=== PATIENT | male | born 1955 | race Caucasian/White ===

== ENCOUNTER → 2016-10-01 | Day surgery (SDC) | payer BC ==
[2016-09-13 10:26] VITALS: Ht 175.3 cm; Wt 72.7 kg
[~2016-10-01] VITALS: Ht 175.3 cm; Wt 72.7 kg
[~2016-10-01] MED LIST: ATOR10TA82 PO; EPP3/2 IM; LIDOCAINE HCL 2% 2 ML VIAL (20MG/ML) ONE; MELO7.5T5 PO; MULTCAP42 PO; OMEG1CAP84 PO; PHENYLEPHRINE 100MCG/ML 5ML SYR ONE; PROPOFOL IV EMULSION 10 MG/ML 20 ML VIAL IV ONE; SODIUM CHLORIDE 0.9% 500ML 500 ML IV ONE; ZNTT/150 PO
[2016-10-01 14:35] VITALS: TEMP 36.7
--- NOTE | 2016-10-01 15:13 | Endo History and Physical ---
History & Physical Date of Service: Oct 01, 2016. Chief Complaint: ABD PAIN Referring Physician: DR Lawson MCNEIL History of Present Illness 61 yo CM who presents for colonoscopy secondary to abdominal pain and recent diverticulitis. Past Surgical History Hx Cardiac Surgery: No Hx Internal Defibrillator: No Hx Pacemaker: No Hx Abdominal Surgery: No Hx of Implantable Prosthesis: No Hx Post-Op Nausea and Vomiting: No Hx Cancer Surgery: No Hx Thoracic Surgery: No Hx Orthopedic: Yes (LEFT KNEE SURGERY (HARDWARE) AND REMOVAL, RT RCR/BICEP TENDON) Hx Urinary Tract Surgery: No Family History None Social History Smoking Status: Never Smoker Hx Substance Use: No Hx Alcohol Use: No Allergies Coded Allergies: Shrimp (Unverified Allergy, Severe, ANAPHYLAXIS, 09/13/16) PT came in today thinking that shrimp was the cause of his allergic reaction NO KNOWN DRUG ALLERGIES (Verified Allergy, Unknown, ., 09/13/16) Current Medications Reported Home Medications Medications Dose Route/Sig Max Daily Dose Days Date Category Epipen (Epinephrine) 0.3 Mg/0.3 Ml Inj 0.3 Mg IM UD 09/13/16 Reported Lipitor (Atorvastatin Calcium) 10 Mg Tab 10 Mg PO HS 09/13/16 Reported Zantac (Ranitidine HCl) 150 Mg Tab 150 Mg PO QAM 04/15/16 Reported Mobic (Meloxicam) 7.5 Mg Tab 7.5 Mg PO QAM 04/15/16 Reported Multivitamins (Multiple Vitamin) 1 Cap Cap 1 Cap PO QAM 02/04/13 Reported Fish Oil ([place]-3 Fatty Acids) 1 Cap Cap 1 Cap PO QAM 02/04/13 Reported Vital Signs Weight (Kilograms): 72.73 Height (Feet): 5 Height (Inches): 9 Date Time Temp Pulse Resp B/P (MAP) Pulse Ox O2 Delivery O2 Flow Rate FiO2 10/01/16 14:35 36.7 64 20 112/68 (83) 96 Room Air Physical Exam General Appearance: WD/WN, no apparent distress Respiratory/Chest: Auscultation: breath sounds normal Cardiovascular: Heart Auscultation: RRR Abdomen: Bowel Sounds: normal Inspection & Palpation: soft, non-distended, no tenderness, guarding & rebound Assessment and Plan Assessment: 61 yo CM who presents for colonoscopy secondary to abdominal pain and recent diverticulitis. Plan: Proceed with colonoscopy.
--- NOTE | 2016-10-01 15:46 | Discharge Instructions ---
Endoscopy Patient Instructions Date / Procedure(s) Performed Oct 01, 2016. Colonoscopy Allergy Information Coded Allergies: Shrimp (Unverified Allergy, Severe, ANAPHYLAXIS, 09/13/16) PT came in today thinking that shrimp was the cause of his allergic reaction NO KNOWN DRUG ALLERGIES (Verified Allergy, Unknown, ., 09/13/16) Discharge Date / Findings Oct 01, 2016. Diverticulosis Internal hemorrhoids Medication Instructions OK to resume all medications today as prescribed. Medications Dose Route/Sig Max Daily Dose Days Date Category Epipen (Epinephrine) 0.3 Mg/0.3 Ml Inj 0.3 Mg IM UD 09/13/16 Reported Lipitor (Atorvastatin Calcium) 10 Mg Tab 10 Mg PO HS 09/13/16 Reported Zantac (Ranitidine HCl) 150 Mg Tab 150 Mg PO QAM 04/15/16 Reported Mobic (Meloxicam) 7.5 Mg Tab 7.5 Mg PO QAM 04/15/16 Reported Multivitamins (Multiple Vitamin) 1 Cap Cap 1 Cap PO QAM 02/04/13 Reported Fish Oil ([place]-3 Fatty Acids) 1 Cap Cap 1 Cap PO QAM 02/04/13 Reported Provider Instructions Activity Restrictions - No exercising or heavy lifting for 24 hours. - Do not drink alcohol the day of the procedure. - Do not drive a car or operate machinery until the day after the procedure. - Do not make any important decisions or sign important papers in 24 hours after the procedure. Following Day: - Return to full activity which may include returning to work/school. Diet Start your diet with liquids and light foods (jello, soup, juice, toast). Then eat your usual diet if not nauseated. Treatment For Common After Affects For mild abdominal pain, bloating, or excessive gas: - Rest - Eat lightly - Lie on right side Follow-Up Information Follow-up with DR Lawson MCNEIL as scheduled Anesthesia Information What You Should Know You have had a procedure that required some medicine to reduce anxiety and discomfort. This treatment is called moderate sedation. After receiving the treatment, you may be sleepy, but you will be able to breathe on your own. The effects of the treatment may last for several hours. Follow these instructions along with Activity/Diet recommendations noted above: * Do NOT do anything where dizziness or clumsiness would be dangerous. * Rest quietly at home today, then you can be up and about tomorrow. * Have a responsible person stay with you the rest of today. * You may have had an I.V. today. If so, you may take the dressing off later today. Recommendations Call your doctor if: * Trouble breathing * Continuous vomiting for more than 24 hours * Temperature above 101 degrees * Severe abdominal pain or bloating * Pain not relieved by pain medicine ordered * There is increased drainage or redness from any incision * A large amount of rectal bleeding greater than 2-3 tablespoons. (If you had a polyp/s removed or have hemorrhoids, a small amount of blood - from the rectum is to be expected.) * You have any unanswered questions or concerns. IN THE EVENT OF A SERIOUS EMERGENCY, GO TO THE NEAREST EMERGENCY ROOM Your discharge instructions were prepared by provider Raman Lynne. Patient Instructions Signature Page Saúl Shaw Patient (or Guardian) Signature/Date: I have read and understand the instructions given to me by my caregivers. Caregiver/RN/Doctor Signature/Date: The above-named patient and/or guardian has received patient instructions on this date. + Original Patient Signature Page (only) stays with chart. Please make copy for patient.
--- NOTE | 2016-10-01 15:51 | GI REPORT ---
Procedure Date: 10/01/2016 2:56 PM Procedure: Colonoscopy Indications: Abdominal pain in the left lower quadrant, Follow-up of diverticulitis Medicines: Monitored Anesthesia Care Complications: No immediate complications. Estimated Blood Loss: Estimated blood loss: none. Procedure: Pre-Anesthesia Assessment: - Prior to the procedure, a History and Physical was performed, and patient medications and allergies were reviewed. The patient's tolerance of previous anesthesia was also reviewed. The risks and benefits of the procedure and the sedation options and risks were discussed with the patient. All questions were answered, and informed consent was obtained. Prior Anticoagulants: The patient has taken no previous anticoagulant or antiplatelet agents. ASA Grade Assessment: II - A patient with mild systemic disease. After reviewing the risks and benefits, the patient was deemed in satisfactory condition to undergo the procedure. After I obtained informed consent, the scope was passed under direct vision. Throughout the procedure, the patient's blood pressure, pulse, and oxygen saturations were monitored continuously. The scope was introduced through the anus and advanced to the terminal ileum. The colonoscopy was performed without difficulty. The patient tolerated the procedure well. The quality of the bowel preparation was good. The terminal ileum, ileocecal valve, appendiceal orifice, and rectum were photographed. Findings: Multiple small-mouthed diverticula were found in the sigmoid colon. Non-bleeding internal hemorrhoids were found during retroflexion. The hemorrhoids were small. Impression: - Diverticulosis in the sigmoid colon. - Non-bleeding internal hemorrhoids. - No specimens collected. Recommendation: - Resume previous diet. - Continue present medications. - Repeat colonoscopy in 10 years for surveillance. - Return to primary care physician as previously scheduled. Raman Lynne, 10/01/2016 3:50:59 PM This report has been signed electronically. Note Initiated On: 10/01/2016 2:56 PM I attest to the content of the Intraoperative Record and orders documented therein, exceptions below
--- NOTE | 2016-10-01 16:11 | Anesthesiology Progress Note ---
Anesthesia Post Op Note Date & Time Oct 01, 2016 at 16:11 Vital Signs Pain Intensity: 0 Vital Signs Past 12 Hours Date Time Temp Pulse Resp B/P (MAP) Pulse Ox O2 Delivery O2 Flow Rate FiO2 10/01/16 16:03 69 16 86/50 (62) 96 Room Air 10/01/16 16:00 65 16 84/52 (63) 96 Room Air 10/01/16 15:42 69 16 95/52 (66) 97 Room Air 10/01/16 14:35 36.7 64 20 112/68 (83) 96 Room Air Notes Mental Status: alert / awake / arousable, participated in evaluation Pt Amnestic to Procedure: Yes Nausea / Vomiting: adequately controlled Pain: adequately controlled Airway Patency, RR, SpO2: stable & adequate BP & HR: stable & adequate Hydration State: stable & adequate Anesthetic Complications: no major complications apparent
[2016-10-01 16:19] VITALS: PULSE 70
[2016-10-01 16:29] VITALS: BP 111/66; O2SAT 98
== END | disposition home or self-care (01) ==
LOC: C.GI 13:52
PROVIDERS: ATTEND Internal Medicine
DX: R10.32 Left lower quadrant pain (principal); Z09 Encounter for follow-up examination after completed treatment for conditions other than malignant neoplasm; K57.30 Diverticulosis of large intestine without perforation or abscess without bleeding; K64.8 Other hemorrhoids; Z91.013 Allergy to seafood; Z68.24 Body mass index [BMI] 24.0-24.9, adult; F17.220 Nicotine dependence, chewing tobacco, uncomplicated; Z98.890 Other specified postprocedural states

== ENCOUNTER → 2017-01-21 | Outpatient (CLI) | payer BC ==
[~2017-01-21] MED LIST changes: -ATOR10TA82 PO; +ATOR10TA88 PO; -LIDOCAINE HCL 2% 2 ML VIAL (20MG/ML) ONE; -PHENYLEPHRINE 100MCG/ML 5ML SYR ONE; -PROPOFOL IV EMULSION 10 MG/ML 20 ML VIAL IV ONE; -SODIUM CHLORIDE 0.9% 500ML 500 ML IV ONE
[2017-01-21 09:57] LABS: ALT/SGPT 36 U/L (12-78); BLOOD UREA NITROGEN 14 mg/dl (7-18); BUN/CREATININE RATIO 15.1 (10-20); CARBON DIOXIDE 28 mmol/L (21-32); CHLORIDE 107 mmol/L (98-107); CHOLESTEROL 115 mg/dl (0-200); CREATININE 0.95 mg/dl (0.60-1.40); GLUCOSE 104 mg/dl (70-99); SODIUM 142 mmol/L (136-145); TRIGLYCERIDES 54 mg/dl (0-150); VERY LOW DENSITY LIPOPROT CALC 11 mg/dl
[2017-01-21 10:02] LABS: ALB/GLOB RATIO 1.3 (0.9-2); ALKALINE PHOSPHATASE 73 U/L (45-117); AST/SGOT 21 U/L (15-37); CHOLESTEROL/HDL RATIO 2.3; HDL CHOLESTEROL 49 mg/dl; LDL CHOLESTEROL CALCULATED 55 mg/dl
== END | disposition home or self-care (01) ==
LOC: C.LAB1850 07:11
PROVIDERS: ATTEND Physician Assistant Medical
DX: E78.5 Hyperlipidemia, unspecified (principal); R73.03 Prediabetes; Z12.5 Encounter for screening for malignant neoplasm of prostate

== ENCOUNTER → 2017-03-28 | Outpatient (CLI) | payer BC ==
[~2017-03-28] MED LIST changes: +ATOR10TA82 PO; -ATOR10TA88 PO
[2017-03-28 10:29] LABS: % FREE PSA 17.9 %; FREE PSA 0.73 ng/ml; PROSTATE SPECIFIC ANTIGEN 4.1 ng/ml (0.000-4.000)
== END | disposition home or self-care (01) ==
LOC: C.LABSPEC 07:01
PROVIDERS: ATTEND Urology
DX: R97.20 Elevated prostate specific antigen [PSA] (principal)

== ENCOUNTER → 2017-07-24 | Outpatient (CLI) | payer OTHER ==
[~2017-07-24] MED LIST changes: +RANI150T85 PO; -ZNTT/150 PO
[2017-07-24 09:37] LABS: HEMATOCRIT 43.4 % (42-52); HEMOGLOBIN 14.8 g/dL (14.0-18.0); MEAN CORPUSCULAR HEMOGLOBIN 32.4 pg (25-34); MEAN CORPUSCULAR HGB CONC 34.1 g/dl (32-36); MEAN PLATELET VOLUME 9.7 fL (7.4-10.4); PLATELET COUNT 274 K/uL (130-400); RED CELL DISTRIBUTION WIDTH CV 12.7 % (11.5-14.5); RED CELL DISTRIBUTION WIDTH SD 43.8 fL (36.4-46.3); WHITE BLOOD COUNT 5.37 K/uL (4.8-10.8)
[2017-07-24 09:55] LABS: HEMOGLOBIN A1C 5.9 % (4.5-5.6)
[2017-07-24 09:56] LABS: BASO % 0.7 %; BASO ABS # 0.04 K/uL (0-0.2); EOS % 4.1 %; EOS ABS # 0.22 K/uL (0-0.5); IG# 0.01 K/uL (0.00-0.02); LYMPH % 51.8 %; LYMPH ABS # 2.78 K/uL (1.2-3.4); MONO % 10.4 %; MONO ABS # 0.56 K/uL (0.11-0.59); NEUT % 32.8 %; NEUT ABS # 1.76 K/uL (1.4-6.5)
== END | disposition home or self-care (01) ==
LOC: C.LABSPEC 07:00
PROVIDERS: ATTEND Internal Medicine
DX: E78.5 Hyperlipidemia, unspecified (principal); R73.03 Prediabetes

== ENCOUNTER 2022-05-23 05:30 | Inpatient (IN) ==
--- NOTE | 2022-05-17 12:53 | Anesthesiology Consultation ---
Date of Service May 17, 2022 Assessment & Plan (1) Encounter for pre-operative examination: - check BSG am DOS. - COVID screening: Per chief passenger ship steward/stewardess on 05/17/2022: Travel screen negative, no known COVID-19 positive contacts or current COVID-19 related symptoms in past 2 weeks. To surgeon's discretion if preop COVID testing is needed. Chart Review Chart Review: Acceptable Risk for Surgery and Patient NOT seen in Pre Admission Testing History Surgery Operation Date: 05/23/22 07:30 Proposed Procedures p Laparoscopic Sigmoidectomy, Possible Open, Possible Ostomy - Zi Cerna DO Height/Weight Height: 5 ft 9 in Weight: 72.575 kg Allergies Allergy/AdvReac Type Severity Reaction Status Date / Time shellfish derived Allergy Severe Anaphylaxis Verified 05/10/22 09:15 shrimp Allergy Severe ANAPHYLAXIS Verified 05/10/22 09:15 Medications Home Medications Medication Instructions Recorded Confirmed Last Taken multivitamin 1 tab PO QAM 04/12/19 05/17/22 04/14/21 epinephrine 0.3 mg/0.3 mL 0.3 mg (0.3 mL) IM DAILY PRN 04/28/19 05/17/22 Unknown injection, auto-injector (EpiPen) anaphylaxis #1 ea diclofenac sodium 1 % topical gel 4 g topical QID PRN left knee pain 06/27/20 05/17/22 08/09/20 omega-3 fatty acids 1,250 mg 1,250 mg PO QAM 04/14/21 05/17/22 04/14/21 capsule pantoprazole 40 mg tablet,delayed 40 mg PO QAM #90 tabs 07/10/21 05/17/22 Unknown release calcium carbonate 600 mg-vitamin 1 tab PO BID 07/24/21 05/17/22 Unknown D3 10 mcg (400 unit) tablet (Calcium with Vitamin D) cholecalciferol (vitamin D3) 25 25 mcg PO QAM 07/24/21 05/17/22 Unknown mcg (1,000 unit) capsule psyllium husk 3.4 gram/5.4 gram 1 tbsp PO DAILY 07/24/21 05/17/22 Unknown oral powder (Metamucil) metformin 500 mg tablet,extended 500 mg PO DAILY #30 tabs 11/21/21 05/17/22 Unknown release 24hr atorvastatin 10 mg tablet 10 mg PO HS #90 tabs 01/05/22 05/17/22 Unknown leuprolide (3 month) 22.5 mg (3 22.5 mg subcut ONCE Prostate 02/13/22 05/17/22 Unknown month) subcutaneous syringe cancer #1 ea tamsulosin 0.4 mg capsule 0.4 mg PO BIDWMEAL #60 caps 02/14/22 05/17/22 Unknown amoxicillin 875 mg-potassium 1 tab PO BID #28 tabs 05/11/22 05/17/22 Unknown clavulanate 125 mg tablet Past Medical History Medical History (Updated 05/17/22 @ 12:49 by Edita Damico PA-C) Anemia BPH with obstruction/lower urinary tract symptoms Depression Diverticulosis History of anaphylaxis Hyperlipidemia Osteopenia Prediabetes not currently taking metformin Prostate cancer (02/02/21) 04/2020-radiation tx Past Family History Family History Father Alcohol abuse Mother Skin cancer Brother Skin cancer, Onset Age: 40 Brother No problems noted. Brother No problems noted. Brother No problems noted. Sister No problems noted. Daughter No problems noted. Daughter No problems noted. Son No problems noted. Other No family history of adverse response to anesthesia Denies family history of Ovarian cancer Prostate cancer Diabetes Coronary heart disease Myocardial infarction Breast cancer Colorectal cancer Past Surgical History Surgical History History of colonoscopy with polypectomy History of open reduction and internal fixation (ORIF) procedure (07/01/13) left tibial plateau fracture 07/01/2013--hardware removed History of prostate biopsy (02/02/21) Dr. Anirudh Bustamante History of repair of right rotator cuff (2015) History of tooth extraction Social History Smoking Status: Never smoker tobacco type: smokeless tobacco Do You Dip or Chew Tobacco: No Hx Alcohol Use: No Alcohol type: beer alcohol intake frequency: holidays/special occasions only Hx Substance Use: No substance use type: does not use Lab Results Anesthesia Preop Results Results Anesthesia Widget: WBC 6.80 K/ul (4.8-10.8) 03/28/22 Hgb 13.2 g/dl (14.0-18.0) L 03/28/22 Hct 37.7 % (40.1-51.0) L 03/28/22 Plt 317 K/uL (130-400) 03/28/22 Na 138 mmol/L (136-145) 03/28/22 K 4.5 mmol/L (3.5-5.1) 03/28/22 Cl 105 mmol/L (98-107) 03/28/22 CO2 29 mmol/L (21-32) 03/28/22 BUN 17 mg/dl (6-23) 03/28/22 Creat 1.04 mg/dl (0.6-1.4) 03/28/22 Glucose Level 101 mg/dl (70-99(Fasting)) H 03/28/22 Urine Color Yellow 03/28/22 Urine Appearance Clear (Clear) 03/28/22 Urine pH 6.0 (4.5-7.5) 03/28/22 Urine Specific [place] 1.015 (1.000-1.030) 03/28/22 Urine Protein Negative (Negative) 03/28/22 Urine Glucose (UA) Negative (Negative) 03/28/22 Urine Ketones Negative (Negative) 03/28/22 Urine Blood Negative (Negative) 03/28/22 Urine Nitrite Negative (Negative) 03/28/22 Urine Bilirubin Negative (Negative) 03/28/22 Urine Urobilinogen Negative (Negative) 03/28/22 Urine Leukocyte Esterase Negative (Negative) 03/28/22 Testing Electrocardiogram Date: 05/15/22 NSR, rate 71 bpm Other Testing Abdomen pelvis CT 03/28/22 Gallbladder and biliary tree: Cholelithiasis is seen without evidence of cholecystitis. No intra- or extrahepatic biliary ductal dilation. Reproductive organs: Metallic densities are seen in the prostate. Bowel: Extensive diverticulosis is seen. Again noted is a prominent diverticulum in the sigmoid colon. There is thickening of the wall and surrounding fat stranding and vascular prominence. The appendix is normal. Lymph nodes Retroperitoneal: Subcentimeter lymph nodes are noted. Mesenteric: Subcentimeter mesenteric lymph nodes are seen most prominently about the sigmoid colon. Vessels: Atherosclerotic calcifications are seen. Abdominal wall: A fat-containing umbilical hernia is seen. Bones: Degenerative changes in the visualized spine. Anterior wedge deformities are again noted in the lumbar spine. IMPRESSION: 1. Findings are suggestive of mild diverticulitis about a large sigmoid diverticulum, similar in appearance to prior exam. No evidence of perforation or abscess formation. 2. Cholelithiasis without cholecystitis. 3. Additional findings as above.
[2022-05-23] MEDS ORDERED: HEPARIN SOD 5,000 UNIT/0.5 ML VIAL SQ SCH (06:00)
[2022-05-23] MEDS ORDERED: LACTATED RINGER'S 1,000 ML IV SCH (06:00)
[2022-05-23] MEDS ORDERED: LR 15ML/HR IV SCH (06:00)
[2022-05-23] MEDS ORDERED: ERTAPENEM SODIUM 1,000 MG in SYRINGE 0 ML IV SCH (06:00)
[2022-05-23] MEDS ORDERED: KETAMINE 50 MG/5 ML SYRINGE ONE (06:29)
[2022-05-23] MEDS ORDERED: fentaNYL citrate 100 MCG/2 ML VIAL ONE (06:29)
[2022-05-23] MEDS ORDERED: DEXAMETHASONE SOD INJ 4 MG/ML VIAL ONE (06:29)
[2022-05-23] MEDS ORDERED: MIDAZOLAM HCL 1 MG/ML 2ML VIAL ONE (06:29)
[2022-05-23] MEDS ORDERED: LIDOCAINE 2% MPF LOCAL 5 ML VIAL INFIL ONE (06:29)
[2022-05-23] MEDS ORDERED: PROPOFOL IV EMULSION 10 MG/ML 20 ML VIAL IV ONE (06:29)
[2022-05-23] MEDS ORDERED: ROCURONIUM BROMIDE 10 MG/ML 5 ML VIAL IV ONE ×3 (06:29→08:16)
--- NOTE | 2022-05-23 06:50 | History & Physical Bridge Note ---
Date of Service May 23, 2022 History & Physical Bridge Note I have examined the patient, reviewed the History & Physical and in the interval since the performance of the History & Physical I have noted the following changes of clinical significance: no changes noted
[2022-05-23] MEDS ORDERED: ATROPINE SULFATE 0.1 MG/ML 10ML SYR IV PRN (06:51)
[2022-05-23] MEDS ORDERED: HYDROmorphone INJ 2 MG/ML SYR/VIAL IV PRN (06:51)
[2022-05-23] MEDS ORDERED: ONDANSETRON INJ 2 MG/ML 2 ML VIAL IV PRN (06:51)
[2022-05-23] MEDS ORDERED: ePHEDrine sulfate 50 MG/ML AMP IV PRN (06:51)
[2022-05-23] MEDS ORDERED: BUPIVACAINE/EPINEPHRINE 0.25% 1:200,000 30 ML VIAL ONE (07:37)
[2022-05-23] MEDS ORDERED: ONDANSETRON INJ 2 MG/ML 2 ML VIAL ONE (08:16)
[2022-05-23] MEDS ORDERED: HYDROmorphone INJ 2 MG/ML SYR/VIAL ONE (08:16)
[2022-05-23] MEDS ORDERED: ePHEDrine sulfate 50 MG/ML SYR ONE (08:16)
[2022-05-23] MEDS ORDERED: METHYLENE BLUE 0.5% 10 ML VIAL ONE (09:54)
--- NOTE | 2022-05-23 10:39 | Post Operative Brief Note ---
PG Immediate Post Op with CF Date of Surgery May 23, 2022 Pre & Post Diagnosis Operation Date: 05/23/22 07:00 Pre-Op Diagnosis: 1. Diverticulitis 2. Umbilical hernia Post-Op Diagnosis: 1. Diverticulitis 2. Umbilical hernia I identified the patient and participated in the time-out.: Yes Procedure Operation Date: 05/23/22 07:00 Actual Procedures p Laparoscopic Sigmoidectomy(Not Applicable) - Zi Cerna DO s Open Umbilical Hernia Repair(Not Applicable) - Zi Cerna DO Surgeon Zi Cerna DO Metal Casting Trades Worker Travis Woody DO-Second Surgeon Estimated Blood Loss 100 Findings See Below Extensive phlegmon in the sigmoid colon attached to the lateral pelvic sidewall 1 cm umbilical hernia Specimens Specimen Description: A. Portion of Sigmoid Drains Mcdaniels Catheter Anesthesia Type General Complications none Disposition Disposition: Recovery Room
--- NOTE | 2022-05-23 10:55 | Operative Report ---
PG Post Operative Report Pre & Post Diagnosis Operation Date: 05/23/22 07:00 Pre-Op Diagnosis: 1. Diverticulitis 2. Umbilical hernia Post-Op Diagnosis: 1. Diverticulitis 2. Umbilical hernia I identified the patient and participated in the time-out.: Yes Procedure Operation Date: 05/23/22 07:00 Actual Procedures p Laparoscopic Sigmoidectomy(Not Applicable) - Zi Cerna DO s Open Umbilical Hernia Repair(Not Applicable) - Zi Cerna DO Surgeon Zi Cerna DO Brand Attendant Travis Woody DO-Second Surgeon Estimated Blood Loss 100 Findings See Below Extensive phlegmon in the sigmoid colon attached to the lateral pelvic sidewall 1 cm umbilical hernia Specimens Sigmoid colon and pathology Drains None Anesthesia Type General Complications none Disposition Disposition: Recovery Room Indications 67-year-old male with recurrent diverticulitis Description of Procedure The patient was brought to the OR and placed in the lithotomy position with both arms tucked. At this time he underwent general endotracheal anesthesia without any problems. He was given appropriate pre-operative antibiotics. Mcdaniels catheter was placed under sterile conditions. His abdomen was prepped and draped in the usual sterile fashion. Timeout was called. The procedure was verified as laparoscopic sigmoidectomy, possible open ,open umbilical hernia repair, possible mesh. Surgical, anesthesia and nursing teams agreed and the procedure was begun. After injection of 0.25% Marcaine with epinephrine, a infraumbilical curvilinear incision was made using a #15 blade scalpel. This was carried down to the fascia using electrocautery. The umbilical stalk was then encircled using a Deepa clamp. The hernia sac was then dissected off of the umbilical skin using blunt and sharp dissection and contents were reduced. The hernia sac was removed. At this time the 12 mm [place] trocar was placed through the hernia defect. No injury was seen to placement of trocar. The abdomen was insufflated and the laparoscope and reduced. At this time 3 further trocars were placed under direct visualization. One 12 mm trocar in the right lower quadrant and two 5 mm trocars in the right upper quadrant and left lower quadrant respectively. This time the patient was placed in Trendelenburg and rotated to the right. Upon inspection of the abdomen there was an extensive phlegmon in the sigmoid colon attached to the lateral pelvic sidewall. This was freed up using a combination of blunt and sharp dissection as well as using harmonic scalpel. More proximally the white line of Toldt was taken down using the harmonic scalpel. The ureter was identified and preserved. Once the sigmoid colon was freed laterally, the distal transection point of the colon was identified and a window was made in the mesentery using a harmonic scalpel. This was down to the level of the sacral promontory and was good healthy tissue. Using Autrement (HotelHotel) MARIANELA 60 mm purple load stapler this was fired across the bowel. At this time the mesentery of the sigmoid colon was then transected using the harmonic scalpel back to an area of healthy descending colon free of pathology. The left lower quadrant incision was then lengthened and the distal end of the specimen was delivered through the wound. Again a healthy appearing portion of the descending colon was then transected between bowel clamps using [place] scissors. Specimen was passed off. At this time a 2-0 silk pursestring suture was fashioned into the proximal end of the colon securing a 25 mm EEA anvil. At this time the colon was then placed back into the abdomen and the left lower quadrant incision was closed at the fascial level using 0 PDS suture in a running fashion. We then reinsufflated the abdomen. The boiler assistant operator then placed the EEA stapler through the rectum without issue. The spike was then opened just posterior to the staple line and to the proximal colon anvil was attached to the spike. The anastomosis was free of tension and appeared healthy. The EEA stapler was then fired and 2 intact donuts were seen upon removal. This time a leak test was performed using the rigid proctoscope and no leak was found. The abdomen was then irrigated until clear. Hemostasis was complete. At this time the trocars were removed and no bleeding was noted. The abdomen was desufflated. The umbilical hernia defect was then cleared of any surrounding devitalized tissue and closed primarily using 0 PDS in a [id number] fashion. The umbilicus was then tacked down to the fascia using 3-0 Vicryl. The right lower quadrant 12 mm trocar was closed the fascial level using an 0 Vicryl suture. Incisions were then closed with 3-0 Vicryl was used to close the deep dermal layer and 4-0 Monocryl was used to close the skin in a running subcuticular fashion. Sterile dressing was applied. All needle and sponge counts were correct x 2. At this point the patient was awakened from anesthesia, extubated and transported to PACU in stable condition. My partner Travis Woody DO was present and scrubbed for the entire case. He was needed due to the complexity of the case. I attest to the content of the Intraoperative Record and any orders documented therein. Any exceptions are noted below.
[2022-05-23] MEDS ORDERED: GLYCOPYRROLATE 0.2 MG/ML VIAL ONE (10:56)
[2022-05-23] MEDS ORDERED: NEOSTIGMINE METHYLSULFATE 1 MG/ML 10ML VIAL ONE (10:56)
[2022-05-23] MEDS: fentaNYL citrate 100 MCG/2 ML VIAL IV PRN ×2 (11:22→11:34)
--- NOTE | 2022-05-23 11:44 | Anesthesiology Progress Note ---
Date of Service May 23, 2022 Anesthesia Post Procedure Vital Signs Vital Signs: Temp Pulse Pulse Resp BP Pulse Ox O2 Del Method 05/23/22 11:35 36.3 C L 77 18 120/70 97 Nasal Cannula 05/23/22 11:05 86 20 114/78 100 Oxymask 05/23/22 11:25 87 13 112/68 93 Nasal Cannula 05/23/22 11:15 85 18 122/72 99 Oxymask 05/23/22 10:55 92 H 16 116/78 98 Oxymask 05/23/22 10:47 36.3 C L 99 H 13 133/75 99 Oxymask 05/23/22 05:58 36.6 C 66 16 112/71 98 Room Air O2 Flow Rate 05/23/22 11:35 3 05/23/22 11:05 5 05/23/22 11:25 3 05/23/22 11:15 5 05/23/22 10:55 5 05/23/22 10:47 5 05/23/22 05:58 Pain Intensity Abdomen: Pain Intensity: 6 Transfer of Care Handoff Completed per policy Notes Mental Status: alert / awake / arousable and participated in evaluation Patient Amnestic to Procedure: Yes Nausea / Vomiting: adequately controlled Pain: adequately controlled Airway Patency, RR, SpO2: stable & adequate BP & HR: stable & adequate Hydration State: stable & adequate Anesthetic Complications: no major complications apparent and Pt Satisfied with anesthetic care
[2022-05-23] MEDS ORDERED: NALOXONE HCL 0.4 MG/1 ML VIAL/CARP IV PRN (12:36)
[2022-05-23] MEDS ORDERED: HYDROmorphone PCA 30 MG/30 ML IV PRN (12:36)
[2022-05-23] MEDS: ACETAMINOPHEN 1,000 MG/100 ML VIAL IV SCH ×2 (13:17→20:25)
[2022-05-23] MEDS: LACTATED RINGER'S 1,000 ML IV SCH ×2 (13:17→21:02)
[2022-05-23] MEDS: SODIUM CHLORIDE 0.9% 1000ML 1,000 ML IV SCH (13:41)
[2022-05-23] MEDS: TAMSULOSIN HCL 0.4 MG CAP PO SCH (20:25)
[2022-05-24] MEDS: ACETAMINOPHEN 1,000 MG/100 ML VIAL IV SCH ×3 (04:38→21:11)
[2022-05-24] MEDS: LACTATED RINGER'S 1,000 ML IV SCH ×3 (05:52→21:39)
--- NOTE | 2022-05-24 08:04 | Surgery Progress Note ---
Date of Service May 24, 2022 Assessment & Plan (1) S/P laparoscopic-assisted sigmoidectomy: Plan: POD#1 sigmoidectomy and umbilical hernia repair pt is doing well post op tolerating clears, pain manageable. no n/v. dressings c/d/i labs this AM are pending plan to d/c blake start ppx lovenox if hbg stable OOB and pulmonary toilet encouraged throughout the day awaiting return of bowel function Admission and Anticipated Discharge Date Admission Date: May 23, 2022 Supervising Physician Co-Signing Physician Notes I personally saw and evaluated the patient with Annika Birmingham PA-C and agree with the assessment and plan. 67-year-old male postoperative day 1 laparoscopic sigmoidectomy, open umbilical hernia repair His were labs reviewed Vital signs are stable Continue clear liquids until some return of bowel function Remove Blake catheter Pain control with DEFENSE ATTORNEY Start Lovenox 40 mg subcutaneously daily for DVT prophylaxis Encourage ambulation incentive spirometry, wean oxygen as able Subjective Patient is doing well. Tolerating clears, no nausea/vomiting. Pain managed with Tylenol and DEFENSE ATTORNEY currently. Had some bladder pains yesterday and realized blake needed repositioned with relief. Was able to sit at the side of the bed and even stand for a little bit yesterday. Physical Exam Physical Exam: awake/alert, no distress Respiratory: normal respiratory effort Gastrointestinal (Abdomen): Inspection/Auscultation: + abdomen distended (mild) and + abdominal surgical incision (surgical dressings in place, c/d/i) Percussion/Palpation: + abdomen tender (expected treva incisional discomfort ) and abdomen soft Results & Data ([facility]) Vital Signs (Past 12 Hours) Vital Signs Temp Pulse Pulse Resp BP BP Pulse Ox 05/24/22 07:41 36.8 C 83 20 101/63 97 05/24/22 06:19 05/24/22 02:48 36.7 C 80 20 138/63 97 05/23/22 22:08 36.6 C 88 20 95/51 L 96 05/23/22 20:30 05/23/22 20:05 36.6 C 87 16 93/53 L 97 O2 Del Method O2 Flow Rate 05/24/22 07:41 Room Air 05/24/22 06:19 Nasal Cannula 1 05/24/22 02:48 Nasal Cannula 05/23/22 22:08 Room Air 05/23/22 20:30 Nasal Cannula 2 05/23/22 20:05 Nasal Cannula 2 PG Care Time/CCT Total # of Minutes Spent Total Time Spent with Patient: Total time spent is greater than 50% in coordination of care (as documented) at patient's floor/unit and/or counseling patient: Coding Level of Care Code None Diagnoses S/P laparoscopic-assisted sigmoidectomy Z90.49
[2022-05-24] MEDS: ENOXAPARIN INJ 40 MG/0.4 ML SYR SQ SCH (08:19)
[2022-05-24] MEDS: TAMSULOSIN HCL 0.4 MG CAP PO SCH ×2 (08:19→21:12)
[2022-05-24 08:42] LABS: Basophils # (auto) 0.01 K/uL (0-0.2); Basophils % (auto) 0.1 %; Hematocrit (blood only) 32.1 % (42.0-52.0); Hemoglobin 10.8 g/dl (14.0-18.0); Immature Granulocytes # (auto) 0.03 K/uL (0.01-0.20); Immature Granulocytes % (auto) 0.4 %; Lymphocytes % (auto) 16.9 %; Mean Corpuscular Hemoglobin 32.2 pg (25.0-34.0); Mean Corpuscular Hgb Conc 33.6 g/dL (32.0-36.0); Mean Corpuscular Volume 95.8 fL (80.0-100.0); Mean Platelet Volume 9.5 fL (9.4-12.4); Monocytes # (auto) 0.66 K/uL (0.11-0.59); Monocytes % (auto) 8.6 %; Neutrophils # (auto) 5.69 K/uL (1.40-6.50); Platelet Count 229 K/uL (130-400); RDW Coefficient of Variation 12.6 % (11.5-14.5); RDW Standard Deviation 43.9 fL (36.4-46.3); Red Blood Count 3.35 M/uL (4.70-6.10); White Blood Count 7.69 K/ul (4.8-10.8)
[2022-05-24 09:24] LABS: Calcium 8.8 mg/dl (8.5-10.1); Potassium 4.1 mmol/L (3.5-5.1)
[2022-05-24 09:29] LABS: Creatinine Clr Calc Pharmacy 69.7 ml/min; Est GFR (African American) 88.6 ml/min; Est GFR (Non-African American) 76.5 ml/min
[2022-05-24] MEDS: SODIUM CHLORIDE 0.9% 1000ML 1,000 ML IV SCH (12:52)
[2022-05-25] MEDS: ONDANSETRON INJ 2 MG/ML 2 ML VIAL IV PRN ×2 (03:52→08:37)
[2022-05-25] MEDS: ACETAMINOPHEN 1,000 MG/100 ML VIAL IV SCH ×3 (04:56→20:04)
[2022-05-25] MEDS: LACTATED RINGER'S 1,000 ML IV SCH ×2 (06:08→17:20)
[2022-05-25 07:34] LABS: Basophils # (auto) 0.02 K/uL (0-0.2); Basophils % (auto) 0.3 %; Eosinophils # (auto) 0.01 K/uL (0-0.50); Eosinophils % (auto) 0.1 %; Hematocrit (blood only) 32.2 % (42.0-52.0); Hemoglobin 10.9 g/dl (14.0-18.0); Immature Granulocytes # (auto) 0.03 K/uL (0.01-0.20); Immature Granulocytes % (auto) 0.4 %; Lymphocytes # (auto) 0.74 K/uL (1.2-3.4); Lymphocytes % (auto) 10.4 %; Mean Corpuscular Hemoglobin 32.1 pg (25.0-34.0); Mean Corpuscular Hgb Conc 33.9 g/dL (32.0-36.0); Mean Corpuscular Volume 94.7 fL (80.0-100.0); Mean Platelet Volume 9.7 fL (9.4-12.4); Monocytes # (auto) 0.64 K/uL (0.11-0.59); Neutrophils # (auto) 5.66 K/uL (1.40-6.50); Neutrophils % (auto) 79.8 %; Platelet Count 232 K/uL (130-400); RDW Coefficient of Variation 12.4 % (11.5-14.5); RDW Standard Deviation 43.4 fL (36.4-46.3)
[2022-05-25] MEDS ORDERED: MoRPHine SULFATE 4 MG/ML 1 ML CARP\\VIAL IV PRN (08:19)
[2022-05-25] MEDS ORDERED: PROMETHAZINE HCL 12.5 MG in SODIUM CHLORIDE 0.9% 50 ML IV PRN (08:19)
[2022-05-25] MEDS ORDERED: MoRPHine SULFATE 2 MG/ML CARP IV PRN (08:19)
--- NOTE | 2022-05-25 08:25 | Surgery Progress Note ---
Date of Service May 25, 2022 Assessment & Plan (1) S/P laparoscopic-assisted sigmoidectomy: Plan: POD#2 sigmoidectomy and umbilical hernia repair Some nausea/headache noted this AM, starting to improve after meds Vitals are stable. WBC 7, Hbg 10.9 Continue clears until further return of bowel function. Decrease IVF Will d/c C[employer] SUPPLY DISTRIBUTOR and transition to PO + IV pain meds prn On lovenox for dvt ppx OOB and pulmonary toilet encouraged Admission and Anticipated Discharge Date Admission Date: May 23, 2022 Supervising Physician Co-Signing Physician Notes I personally saw and evaluated the patient with Annika Birmingham PA-C and agree with the assessment and plan. 67-year-old male postoperative day 2 laparoscopic sigmoidectomy, open umbilical hernia repair His were labs reviewed Vital signs are stable We will DC [employer]ICE SUPPLY DISTRIBUTOR and start p.o. pain medication with IV for breakthrough We will give one-time dose of ibuprofen for headache Decrease IV fluids Order KUB Continue clear liquids until some return of bowel function Continue Lovenox 40 mg subcu for DVT prophylaxis He needs to ambulate 3 times daily Subjective Patient feeling a little lousy this AM, reports a headache and nausea that came on suddenly at 4:30 this AM. He has received pain meds this morning and feeling a bit better thus far. Does not feel like he needs to vomit currently. Reports pain is controlled, not pressing [employer]EN[employer] SERVICE SUPPLY DISTRIBUTOR button much. No gas/BM thus far. Has been voiding well. Physical Exam Physical Exam: awake/alert Respiratory: normal respiratory effort Gastrointestinal (Abdomen): Inspection/Auscultation: + abdomen distended (mild) and + abdominal surgical incision (dressings c/d/i) Percuss ion/Palpation: + abdomen tender (mild incisional discomfort) and abdomen soft Results & Data ([facility]) Vital Signs (Past 12 Hours) Vital Signs Temp Pulse Resp BP BP Pulse Ox O2 Del Method 05/25/22 07:29 36.8 C 76 16 109/64 96 Nasal Cannula 05/25/22 03:55 36.8 C 82 16 124/64 94 Room Air 05/24/22 21:19 37.3 C 89 20 113/67 95 Room Air O2 Flow Rate FiO2 05/25/22 07:29 1 40 05/25/22 03:55 05/24/22 21:19 PG Care Time/CCT Total # of Minutes Spent Total Time Spent with Patient: Total time spent is greater than 50% in coordination of care (as documented) at patient's floor/unit and/or counseling patient: Coding Level of Care Code None Diagnoses S/P laparoscopic-assisted sigmoidectomy Z90.49
[2022-05-25] MEDS: TAMSULOSIN HCL 0.4 MG CAP PO SCH ×2 (08:37→20:04)
[2022-05-25] MEDS: ENOXAPARIN INJ 40 MG/0.4 ML SYR SQ SCH (08:37)
[2022-05-25 08:48] LABS: BUN Creatinine Ratio 12.9 (10-20); Est GFR (African American) 96.7 ml/min; Est GFR (Non-African American) 83.5 ml/min; Potassium 4.1 mmol/L (3.5-5.1)
[2022-05-25] MEDS ORDERED: IBUPROFEN 600 MG TAB PO STA (10:22)
[2022-05-25] MEDS: PANTOprazole 40 MG TAB PO SCH (10:23)
[2022-05-25] MEDS: oxyCODONE HCL IR 5 MG TAB (IMMEDIATE RELEASE) PO PRN (11:40)
--- NOTE | 2022-05-25 12:05 | XRay Report ---
KUB HISTORY: eval nausea s/p sigmoid resection COMPARISON: Abdomen and pelvis CT 03/28/2022. FINDINGS: There are suture material overlying the sacrum consistent with prior bowel anastomosis. The re are few mildly dilated gas-filled loops of large and small bowel seen throughout the abdomen. The small bowel measures up to 3 cm in diameter. The large bowel measures up to 6.8 cm in diameter. No si gnificant gas within the distal colon/rectum. No renal calculi. No ureteral calculi. No pneumoperiton eum or pneumatosis. IMPRESSION: Mildly dilated gas-filled loops of large and small bowel seen throughout the abdomen. No significant gas within the distal colon/rectum. Therefore, this is nonspecific and could be due to an ileus or de veloping distal large bowel obstruction. ACT 112: Negative or not required by law. Electronically signed by: Herbert Goodwin M.D. 05/25/2022 12:03 PM
[2022-05-26] MEDS ORDERED: IBUPROFEN 200 MG TAB PO PRN (02:01)
[2022-05-26] MEDS: LACTATED RINGER'S 1,000 ML IV SCH (04:23)
[2022-05-26] MEDS: ACETAMINOPHEN 1,000 MG/100 ML VIAL IV SCH (04:24)
--- NOTE | 2022-05-26 06:06 | Surgery Progress Note ---
Date of Service May 26, 2022 Assessment & Plan (1) S/P laparoscopic-assisted sigmoidectomy: Plan: Status post sigmoidectomy on 05/23/2022 (postop day #3) Surgical pathology is pending We will maintain patient on clear liquids until bowel function has improved Continue IV fluid until oral intake is adequate Continue analgesicscontinue antiemetics Encourage ambulation Encourage use of incentive spirometry Lovenox is in place for DVT prevention Check a.m. labs available Admission and Anticipated Discharge Date Admission Date: May 23, 2022 Supervising Physician Co-Signing Physician Notes I personally saw and evaluated the patient with Noé Roberts PA-C and agree with the assessment and plan. 67-year-old male postoperative day 3 laparoscopic sigmoidectomy, open umbilical hernia repair His were labs reviewed Vital signs are stable Switch IV fluids to D5 half-normal saline with KCl Continue his pain control, current regimen is working well Continue clear liquids until some return of bowel function Continue Lovenox 40 mg subcu for DVT prophylaxis He needs to ambulate 3 times daily Subjective Patient is resting comfortably in bed. He notes his surgical pain is currently well controlled. He denies any bowel movement or flatus since surgery and does not feel very hungry. Patient does note that over the past 2 nights he has had a headache that has responded to Motrin. Currently his headache has resolved. Physical Exam Gastrointestinal (Abdomen): Abdomen is mildly distended but nonrigid. He has appropriate pain near surgical incisions. Bowel sounds are hypoactive. Results & Data ([facility]) Vital Signs (Past 12 Hours) Vital Signs Temp Pulse Resp BP BP Pulse Ox O2 Del Method 05/26/22 02:30 37.1 C 87 16 103/64 96 Room Air 05/25/22 23:25 101/62 05/25/22 22:04 36.8 C 85 16 94/59 L 95 Room Air 05/25/22 20:04 Room Air PG Care Time/CCT Total # of Minutes Spent Total Time Spent with Patient: Total time spent is greater than 50% in coordination of care (as documented) at patient's floor/unit and/or counseling patient: Coding Level of Care Code None Diagnoses S/P laparoscopic-assisted sigmoidectomy Z90.49
[2022-05-26] MEDS: ENOXAPARIN INJ 40 MG/0.4 ML SYR SQ SCH (07:52)
[2022-05-26] MEDS: TAMSULOSIN HCL 0.4 MG CAP PO SCH ×2 (07:52→19:45)
[2022-05-26] MEDS: PANTOprazole 40 MG TAB PO SCH (07:52)
[2022-05-26 08:40] LABS: Basophils # (auto) 0.01 K/uL (0-0.2); Basophils % (auto) 0.2 %; Eosinophils # (auto) 0.18 K/uL (0-0.50); Eosinophils % (auto) 3.6 %; Hematocrit (blood only) 29.1 % (42.0-52.0); Hemoglobin 10.1 g/dl (14.0-18.0); Lymphocytes # (auto) 0.87 K/uL (1.2-3.4); Lymphocytes % (auto) 17.4 %; Mean Corpuscular Hemoglobin 32.5 pg (25.0-34.0); Mean Corpuscular Hgb Conc 34.7 g/dL (32.0-36.0); Mean Corpuscular Volume 93.6 fL (80.0-100.0); Mean Platelet Volume 9.7 fL (9.4-12.4); Neutrophils # (auto) 3.53 K/uL (1.40-6.50); Neutrophils % (auto) 70.8 %; Platelet Count 207 K/uL (130-400); RDW Standard Deviation 41.4 fL (36.4-46.3); Red Blood Count 3.11 M/uL (4.70-6.10); White Blood Count 4.99 K/ul (4.8-10.8)
[2022-05-26 09:03] LABS: BUN Creatinine Ratio 13.1 (10-20); Calcium 8.7 mg/dl (8.5-10.1); Creatinine Clr Calc Pharmacy 70.4 ml/min; Est GFR (African American) 89.7 ml/min; Est GFR (Non-African American) 77.4 ml/min; Potassium 3.8 mmol/L (3.5-5.1)
[2022-05-26] MEDS: D5W AND 1/2NSS + 20MEQ KCL 20 MEQ/1,000 ML BAG IV SCH ×2 (10:02→23:15)
[2022-05-26] MEDS: oxyCODONE HCL IR 5 MG TAB (IMMEDIATE RELEASE) PO PRN ×3 (10:44→23:16)
--- NOTE | 2022-05-27 05:53 | Surgery Progress Note ---
Date of Service May 27, 2022 Assessment & Plan (1) S/P laparoscopic-assisted sigmoidectomy: Plan: Status post sigmoidectomy on 05/23/2022 (postop day #4) Surgical pathology is pending We will maintain patient on clear liquids until further bowel function noted Continue IV fluid until oral intake is adequate Continue analgesics continue antiemetics Continue to encourage ambulation Encourage use of incentive spirometry Lovenox is in place for DVT prevention If patient has further fevers will pursue additional work Admission and Anticipated Discharge Date Admission Date: May 23, 2022 Supervising Physician Co-Signing Physician Notes I personally saw and evaluated the patient with Noé Roberts PA-C and agree with the assessment and plan. 67-year-old male postoperative day 4 laparoscopic sigmoidectomy, open umbilical hernia repair He did have 1 low-grade fever yesterday evening Continue current IV fluids We will order a.m. labs Continue his pain control, current regimen is working well Continue clear liquids until some return of bowel function Continue Lovenox 40 mg subcu for DVT prophylaxis He needs to ambulate 3 times daily Subjective Patient is resting comfortably in bed. He does not report any further headaches last evening. He notes minimal abdominal pain. He does not have any nausea or vomiting. He denies any bowel movement or flatus since surgery. He notes he has been ambulating in the hallway. 1 episode code of fever was noted over the past 24 hours. Physical Exam Gastrointestinal (Abdomen): Abdomen is mildly distended with hypoactive bowel sounds. Incisions appear clean, dry, intact. Bowel sounds are present. Appropriate pain noted near surgical incisions. Results & Data ([facility]) Vital Signs (Past 12 Hours) Vital Signs Temp Pulse Resp BP Pulse Ox O2 Del Method 05/26/22 19:45 Room Air 05/26/22 19:55 38.1 C H 75 16 107/59 L 96 Room Air PG Care Time/CCT Total # of Minutes Spent Total Time Spent with Patient: Total time spent is greater than 50% in coordination of care (as documented) at patient's floor/unit and/or counseling patient: Coding Level of Care Code None Diagnoses S/P laparoscopic-assisted sigmoidectomy Z90.49
[2022-05-27] MEDS: PANTOprazole 40 MG TAB PO SCH (08:12)
[2022-05-27] MEDS: ENOXAPARIN INJ 40 MG/0.4 ML SYR SQ SCH (08:13)
[2022-05-27] MEDS: oxyCODONE HCL IR 5 MG TAB (IMMEDIATE RELEASE) PO PRN ×3 (08:13→17:27)
[2022-05-27] MEDS: TAMSULOSIN HCL 0.4 MG CAP PO SCH ×2 (08:13→19:47)
[2022-05-27 09:15] LABS: Basophils # (auto) 0.01 K/uL (0-0.2); Basophils % (auto) 0.2 %; Eosinophils # (auto) 0.16 K/uL (0-0.50); Eosinophils % (auto) 2.8 %; Hematocrit (blood only) 31.7 % (42.0-52.0); Immature Granulocytes # (auto) 0.02 K/uL (0.01-0.20); Immature Granulocytes % (auto) 0.3 %; Lymphocytes # (auto) 0.81 K/uL (1.2-3.4); Lymphocytes % (auto) 14.1 %; Mean Corpuscular Hemoglobin 32.7 pg (25.0-34.0); Mean Corpuscular Hgb Conc 34.7 g/dL (32.0-36.0); Mean Corpuscular Volume 94.3 fL (80.0-100.0); Mean Platelet Volume 9.4 fL (9.4-12.4); Monocytes % (auto) 8.7 %; Neutrophils # (auto) 4.23 K/uL (1.40-6.50); Neutrophils % (auto) 73.9 %; Platelet Count 262 K/uL (130-400); RDW Coefficient of Variation 12.1 % (11.5-14.5); RDW Standard Deviation 42.4 fL (36.4-46.3); Red Blood Count 3.36 M/uL (4.70-6.10); White Blood Count 5.73 K/ul (4.8-10.8)
[2022-05-27 09:48] LABS: Anion Gap 2 (3-11); BUN Creatinine Ratio 11.2 (10-20); Blood Urea Nitrogen 10 mg/dl (6-23); Calcium 8.5 mg/dl (8.5-10.1); Carbon Dioxide 31 mmol/L (21-32); Chloride 103 mmol/L (98-107); Creatinine Clr Calc Pharmacy 78.3 ml/min; Est GFR (African American) 101.1 ml/min; Est GFR (Non-African American) 87.2 ml/min; Glucose 135 mg/dl (70-99(Fasting)); Sodium 136 mmol/L (136-145)
[2022-05-27] MEDS: D5W AND 1/2NSS + 20MEQ KCL 20 MEQ/1,000 ML BAG IV SCH ×2 (12:24→23:55)
[2022-05-28] MEDS: oxyCODONE HCL IR 5 MG TAB (IMMEDIATE RELEASE) PO PRN (00:41)
--- NOTE | 2022-05-28 08:12 | Surgery Progress Note ---
Date of Service May 28, 2022 Assessment & Plan (1) S/P laparoscopic-assisted sigmoidectomy: Plan: POD#5 lap assisted sigmoid colon resection Vitals stable, no fevers over last 24 hours. Labs pending Incisions c/d/i. There is surrounding erythema of the LLQ incision. Will start IV ancef He is passing flatus and BM's, will advance to a full liquid diet. D/c IVF Continue ambulation and pulmonary toilet Admission and Anticipated Discharge Date Admission Date: May 23, 2022 Supervising Physician Co-Signing Physician Notes I personally saw and evaluated the patient with Annika Birmingham PA-C and agree with the assessment and plan. 67-year-old male postoperative day 5 laparoscopic sigmoidectomy, open umbilical hernia repair He had 2 bowel movements last night and this morning and feels much better We will advance to full liquid diet Lovenox for DVT prophylaxis His left lower quadrant does have some erythema, will start Ancef while in the hospital and monitor this may need to be opened at some point Encourage ambulation and incentive spirometry If he tolerates his full liquid diet, will advance to low fiber tomorrow and potentially discharge home Subjective Patient is feeling well. He is starting to pass BMs and is passing flatus. Denies nausea. Abdominal pain well controlled. Physical Exam Physical Exam: awake/alert, no distress Respiratory: normal respiratory effort Gastrointestinal (Abdomen): Inspection/Auscultation: + abdominal surgical incision (c/d/i with steri strips. redness surrounding the LLQ incision; no drainage); abdomen not distended Results & Data ([facility]) Vital Signs (Past 12 Hours) Vital Signs Temp Pulse Pulse Resp BP Pulse Ox O2 Del Method 05/28/22 07:11 36.9 C 84 16 103/60 94 Room Air 05/27/22 23:56 96 Room Air 05/27/22 22:00 37.4 C 78 16 100/62 94 Room Air PG Care Time/CCT Total # of Minutes Spent Total Time Spent with Patient: Total time spent is greater than 50% in coordination of care (as documented) at patient's floor/unit and/or counseling patient: Coding Level of Care Code None Diagnoses S/P laparoscopic-assisted sigmoidectomy Z90.49
[2022-05-28] MEDS: TAMSULOSIN HCL 0.4 MG CAP PO SCH ×2 (08:33→20:28)
[2022-05-28] MEDS: ENOXAPARIN INJ 40 MG/0.4 ML SYR SQ SCH (08:33)
[2022-05-28] MEDS: PANTOprazole 40 MG TAB PO SCH (08:33)
[2022-05-28 08:50] LABS: Basophils # (auto) 0.01 K/uL (0-0.2); Basophils % (auto) 0.2 %; Eosinophils % (auto) 1.7 %; Hematocrit (blood only) 30.2 % (42.0-52.0); Hemoglobin 10.5 g/dl (14.0-18.0); Immature Granulocytes # (auto) 0.01 K/uL (0.01-0.20); Immature Granulocytes % (auto) 0.2 %; Lymphocytes # (auto) 0.82 K/uL (1.2-3.4); Lymphocytes % (auto) 14.1 %; Mean Corpuscular Hemoglobin 32.2 pg (25.0-34.0); Mean Corpuscular Hgb Conc 34.8 g/dL (32.0-36.0); Mean Corpuscular Volume 92.6 fL (80.0-100.0); Mean Platelet Volume 9.4 fL (9.4-12.4); Monocytes # (auto) 0.68 K/uL (0.11-0.59); Monocytes % (auto) 11.7 %; Neutrophils # (auto) 4.21 K/uL (1.40-6.50); Neutrophils % (auto) 72.1 %; Platelet Count 234 K/uL (130-400); RDW Coefficient of Variation 11.9 % (11.5-14.5); RDW Standard Deviation 40.4 fL (36.4-46.3); Red Blood Count 3.26 M/uL (4.70-6.10); White Blood Count 5.83 K/ul (4.8-10.8)
[2022-05-28 09:49] LABS: BUN Creatinine Ratio 12.6 (10-20); Calcium 9.1 mg/dl (8.5-10.1); Creatinine Clr Calc Pharmacy 73.4 ml/min; Est GFR (African American) 94.3 ml/min; Est GFR (Non-African American) 81.3 ml/min; Potassium 4.3 mmol/L (3.5-5.1)
[2022-05-28] MEDS: ceFAZolin 2000MG 2,000 MG/15 ML SYR IV SCH ×3 (11:18→23:48)
[2022-05-29 08:40] LABS: Basophils # (auto) 0.02 K/uL (0-0.2); Basophils % (auto) 0.3 %; Eosinophils # (auto) 0.08 K/uL (0-0.50); Eosinophils % (auto) 1.1 %; Hematocrit (blood only) 31.5 % (42.0-52.0); Hemoglobin 10.9 g/dl (14.0-18.0); Immature Granulocytes # (auto) 0.02 K/uL (0.01-0.20); Immature Granulocytes % (auto) 0.3 %; Lymphocytes # (auto) 0.85 K/uL (1.2-3.4); Lymphocytes % (auto) 11.3 %; Mean Corpuscular Hemoglobin 31.7 pg (25.0-34.0); Mean Corpuscular Hgb Conc 34.6 g/dL (32.0-36.0); Mean Corpuscular Volume 91.6 fL (80.0-100.0); Mean Platelet Volume 9.5 fL (9.4-12.4); Monocytes # (auto) 0.78 K/uL (0.11-0.59); Monocytes % (auto) 10.4 %; Neutrophils # (auto) 5.77 K/uL (1.40-6.50); Neutrophils % (auto) 76.6 %; Platelet Count 275 K/uL (130-400); RDW Coefficient of Variation 11.9 % (11.5-14.5); Red Blood Count 3.44 M/uL (4.70-6.10); White Blood Count 7.52 K/ul (4.8-10.8)
--- NOTE | 2022-05-29 08:57 | Surgery Progress Note ---
Date of Service May 29, 2022 Assessment & Plan (1) S/P laparoscopic-assisted sigmoidectomy: Plan: Patient continues to tolerate his full liquid diet We will advance to a low fiber diet His left lower quadrant incision was opened laterally for about 1 inch and pur ulent fluid was expressed and the area was repacked We will start him on Augmentin for 14 days for his wound infection He will need twice daily packing changes to the incision His labs were reviewed, no leukocytosis and his vitals are stable He tolerates his low fiber diet and still has return of bowel function, he can be discharged later today (2) Diverticulitis: Admission and Anticipated Discharge Date Admission Date: May 23, 2022 Subjective Patient seen and examined. Still with incisional pain, especially at his left lower quadrant incision. Denies any nausea or vomiting. Had 2 bowel movements yesterday and is passing flatus. Review of Systems Constitutional: no fever and no chills Physical Exam Constitutional: WD/WN, vitals as above Gastrointestinal (Abdomen): Inspection/Auscultation: abdomen normal to inspection; abdomen not distended Percussion/Palpation: + abdomen tender (Left lower quadrant) and abdomen soft Left lower quadrant incision with erythema along the lateral aspect of the incision Results & Data ([facility]) Vital Signs (Past 12 Hours) Vital Signs Temp Pulse Pulse Resp BP Pulse Ox O2 Del Method 05/29/22 07:16 37.1 C 86 18 131/89 93 Room Air 05/28/22 23:47 37.7 C H 79 21 100/61 96 Room Air PG Care Time/CCT Total # of Minutes Spent Total Time Spent with Patient: Total time spent is greater than 50% in coordination of care (as documented) at patient's floor/unit and/or counseling patient: Coding Level of Care Code None Diagnoses S/P laparoscopic-assisted sigmoidectomy Z90.49 Diverticulitis K57.92
[2022-05-29 09:00] LABS: BUN Creatinine Ratio 16.5 (10-20); Calcium 9.3 mg/dl (8.5-10.1); Creatinine Clr Calc Pharmacy 76.6 ml/min; Est GFR (African American) 99.3 ml/min; Est GFR (Non-African American) 85.7 ml/min; Potassium 4.3 mmol/L (3.5-5.1)
[2022-05-29] MEDS: ENOXAPARIN INJ 40 MG/0.4 ML SYR SQ SCH (09:11)
[2022-05-29] MEDS: TAMSULOSIN HCL 0.4 MG CAP PO SCH (09:12)
[2022-05-29] MEDS: PANTOprazole 40 MG TAB PO SCH (09:12)
[2022-05-29] MEDS: ceFAZolin 2000MG 2,000 MG/15 ML SYR IV SCH (09:14)
--- NOTE | 2022-05-29 15:03 | Discharge Summary ---
Date of Service May 29, 2022 Principal Diagnosis s/p laparoscopic assisted sigmoidectomy h/o diverticulitis Discharge Exam awake/alert, no distress Respiratory normal respiratory effort Gastrointestinal (Abdomen) Inspection/Auscultation: + abdominal surgical incision (c/d/i with steri strips. redness surrounding the LLQ incision; no drainage); abdomen not distended Percussion/Palpation: + abdomen tender (mild incisional discomfort) and abdomen soft Discharge Data Allergies Allergy/AdvReac Type Severity Reaction Status Date / Time shellfish derived Allergy Severe Anaphylaxis Verified 05/23/22 05:48 shrimp Allergy Severe ANAPHYLAXIS Verified 05/23/22 05:48 Procedures Performed Operation Date: 05/23/22 07:00 Actual Procedures p Laparoscopic Sigmoidectomy(Not Applicable) - DO felicia Quijano Open Umbilical Hernia Repair(Not Applicable) - Zi Cerna DO Hospital Course (1) S/P laparoscopic-assisted sigmoidectomy: This is a 67yM with a PMH of diverticulitis who presented to the [facility] on 2 for an elective laparoscopic sigmoid colon resection. The patient tolerated the procedure well, see op note for full details. He recovered in the PACU and was transferred to the med/surg unit in stable condition with a CHIEF DESIGN DRAFTER for pain control, IV APAP, a clear liquid diet, and blake catheter. On POD#1 patient doing well. Blake catheter was removed and he was able to void without issues. DVT prophylaxis started in the form of lovenox daily. He continued on clear liquids and CHIEF DESIGN DRAFTER for pain. POD#2 he developed some mild nausea and a headache. These were controlled with anti-nausea meds and ibuprofen. CHIEF DESIGN DRAFTER discontinued and he started on po pain meds with prn IV breakthrough if needed. Remained on clears. POD#3-#4 he remained on clears. He had a one time fever that resolved on it's own. WBC not elevated and vital signs stable. Activity and pulmonary toilet were encouraged. POD#5 he began having + bowel function. Diet was advanced to full liquids which he tolerated well. His LLQ incision was noted to be red and he was started on IV abx. POD#6 the patient continued with + bowel function. Diet advanced to low fiber without issue. His incision was noted to be erythematous despite IV abx. The lateral portion was opened up slightly and pus was encountered. This was evacuated and wound was then packed with nu-gauze. His came to learn dressing changes in addition he was set up for home care for this. Antibiotic changed to oral augmentin and he was sent a prescription to his pharmacy to fill. He was instructed to continue twice daily packing changes to his incision and to follow up in clinic with Dr. Cerna within 1 week. Total Time Total Time Spent Total Time Spent (In Minutes): 20 Discharge Plan Discharge Items Patient Disposition: Home - Home Health Services Reason For Visit: SIGMOID COLON RESECTION Discharge Diagnosis: sigmoid colon resection umbilical hernia repair Activity: Per Instructions section Lifting: No more than 10 pounds Bathing Comment: may shower; no soaking in tubs/pools Exercise/Sports: Wait until after follow-up appointment Driving/Machine Use: no driving while taking narcotics for pain Non-emergency contact: Surgeon Call non-emergency contact if: you have any medication questions, your symptoms worsen, your pain is not controlled, your pain is concerning for you, you have a fever, your temperature is above 101.5, your wound has increased redness, your wound has increased drainage and your wound pain has increased Follow-up/Referrals: Erik Land MD [Primary Care Provider] - Zi Cerna DO [Physician] - 06/06/22 9:15 am (Please call to schedule follow up in clinic within 1 week) Diet: Low Fiber Addtl Attending Provider Instructions: Please continue on a low fiber diet over the next several weeks/ Please complete the full course of antibiotic prescribed to you Please change the packing in your lower left incision twice daily with 1/4" nu gauze packing, cover with dry 4x4 gauze, and adhere with medipore tape Pending Studies at Discharge: Yes Studies:: surgical pathology Stand-Alone Forms: [facility] [employer], Smoking Cessation Medications and DC Order Prescriptions: New oxycodone 5 mg tablet 5 - 10 mg PO [id number] PRN (Reason: pain, for initial therapy, max 6 tabs per day) Qty: 15 0RF amoxicillin-pot clavulanate 875-125 mg tablet 1 tab PO BID 14 Days Qty: 28 0RF Continued calcium carbonate-vitamin D3 [Calcium with Vitamin D] 600 mg-10 mcg (400 unit) tablet 1 tab PO BID cholecalciferol (vitamin D3) 25 mcg (1,000 unit) capsule 25 mcg PO QAM Metamucil 3.4 gram/5.4 gram powder 1 tbsp PO DAILY Rx Instructions: mix into at least 8 oz of water or juice before administering leuprolide (3 month) 22.5 mg syringe 22.5 mg subcut ONCE Qty: 1 0RF Rx Instructions: ICD: C61. Coming 06/21/22. pantoprazole 40 mg tablet,delayed release (DR/EC) 40 mg PO QAM Qty: 90 3RF Rx Instructions: TAKE 1 TABLET BY MOUTH ONCE DAILY atorvastatin 10 mg tablet 10 mg PO HS Qty: 90 3RF tamsulosin 0.4 mg capsule 0.4 mg PO BIDWMEAL Qty: 60 5RF Rx Instructions: Take one after breakfast and supper. multivitamin tablet 1 tab PO QAM epinephrine [EpiPen] 0.3 mg/0.3 mL auto-injector 0.3 mg IM DAILY PRN (Reason: anaphylaxis) Qty: 1 5RF diclofenac sodium 1 % gel 4 g topical QID PRN (Reason: left knee pain) omega-3 fatty acids 1,250 mg Capsule 1,250 mg PO QAM Discontinued amoxicillin-pot clavulanate 875-125 mg tablet 1 tab PO BID Qty: 28 0RF Discharge Orders: Discharge Order (Routine); Ordered 05/29/22 Ordered By: Annika Gale/Other Patient Handouts: Low-Fiber Diet Admission Data Admit Date/Time: 05/23/22 10:49 Attending Provider: Zi Cerna Admit Provider: Zi Cerna Primary Care Provider: Erik Land Other Providers: [facility] Other Interventions: Discharge Summary Assessment (RN) Last Done: 05/29/22 14:17 Coding Level of Care Code HOSP INP/OBS DISCH 30 MIN/LESS Diagnoses S/P laparoscopic-assisted sigmoidectomy Z90.49
[2022-05-29 15:26] VITALS: BP 105/67; PULSE 81; TEMP 98.4; O2SAT 96
[2022-05-29] MEDS ORDERED: AMOXICILLIN/CLAVULANATE 875 MG TAB PO SCH (17:00)
== END 2022-05-29 16:20 | disposition home health service (06) | DRG 331 ==
LOC: ASU 05:30 → 3N 10:49